=== PATIENT | female | born 1965 | race Two or more races ===

== ENCOUNTER 2020-10-26 08:00 | Outpatient (CLI) | payer OTHER ==
[~2020-10-26 08:00] MED LIST: ETODOLAC300 MG PO; METHOCARBAMOL750 MG PO
[2020-11-04] MEDS ORDERED: INDOMETHACIN50 MG PO (12:01)
== END 2020-10-26 08:30 | disposition home or self-care (01) ==
LOC: PPH VACUNA 08:00
DX: Z23 Encounter for immunization (principal)